=== PATIENT | female | born 1965 | race Caucasian/White ===

== ENCOUNTER → 2018-01-22 | Outpatient (CLI) | payer OTHER ==
[~2018-01-22] VITALS: Ht 165.1 cm; Wt 85.9 kg
[~2018-01-22] MED LIST: BENADRYL25 M2 PO; FEXOFENADINE HY60 MG PO
[2018-01-22 09:09] VITALS: BP 132/82
== END ==
LOC: AMSURD 08:53
DX: I49.9 Cardiac arrhythmia, unspecified (principal)

== ENCOUNTER 2019-08-08 08:30 | Outpatient (RCR) | payer OTHER ==
[2018-01-22 09:09] VITALS: BP 132/82
== END 2019-08-08 09:00 | disposition home or self-care (01) ==
LOC: PT 08:30
DX: M54.10 Radiculopathy, site unspecified (principal)